=== PATIENT | female | born 1985 | race Caucasian/White ===

== ENCOUNTER 2024-06-25 03:49 | Emergency (ER) | payer OTHER, SELFPAY ==
[2024-06-25] VITALS (8 sets, daily range): BP systolic 149–152; BP diastolic 90–100; PULSE 95–118; RESP 16–18; TEMP 37.1–37.9; O2SAT 98–100; BMI 24.2
--- NOTE | ~2024-06-25 | CT_ITS ---
EXAMINATION: CT SOFT TISSUE NECK WITH CONTRAST CLINICAL INFORMATION: Left CLOTH WEIGHER suspicion. Cannot swallow. COMPARISON: None available. TECHNIQUE: Following the intravenous administration of 60 mL of Omnipaque 350 intravenous contrast, helical imaging was performed in the axial plane with generation of coronal and sagittal reformatted images. This CT examination was performed using dose optimization techniques as appropriate, variously including the following: *Automated exposure control *Adjustment of mA and/or kV according to patient size (this includes techniques or standardized protocols for targeted exams where dose is matched to indication/reason for exam; i.e. extremities or head) *Use of iterative reconstruction technique DLP: 528 mGy centimeter. FINDINGS: There is an irregularly-shaped, 35 x 32 x 50 mm low density centered in the left palatine tonsil resulting in mass effect and volume loss of the upper airways in the oropharynx and slightly nasopharynx. There is edema pattern and fluid into the left piriform sinus vallecula, and retropharynx up to C7 level. Sign Language Instructor spaces, parapharyngeal spaces and carotid spaces demonstrated no masses or fluid collections. Salivary glands are normal. Thyroid gland demonstrates normal enhancement pattern without dominant nodules. The vessels are patent. Lymphadenopathy, left greater than the right involving the submandibular and suprahyoid carotid compartments. The osseous structures are intact. Marginal osteophyte formation C5-C6. Tympanic cavities and mastoid cells are aerated. Polypoid mucosal thickening, maxillary sinuses. CT/CT soft tissue neck w IV con IMPRESSION: Phlegmon versus abscess center left palatine tonsil resulting in upper airway obstruction with edema pattern/fluid extending into the supraglottic and left retropharynx up to C7 level. Lymphadenopathy, likely reactive. Electronically signed by: Nhan Greenfield MD 06/25/2024 09:57 AM EDT
[2024-06-25 04:10] LABS: Basophils Percent Auto 0.1 % (0-2); Eosinophils Absolute Auto 0.1 X10*3/uL (0.0-0.4); Eosinophils Percent Auto 0.5 % (0-4); Hematocrit 36.2 % (37.0-47.0); Hemoglobin 12.5 g/dl (12.0-16.0); Imm Gran Abs Auto 0.04 X10*3/uL (0.00-0.03); Imm Gran Pct Auto 0.3 % (0.0-0.4); Lymphocytes Absolute Auto 1.2 X10*3/uL (1.2-4.9); Lymphocytes Percent Auto 8.9 % (20-40); MANUAL DIFF FLAG NO; Mean Corpuscular HGB Conc 34.5 g/dl (31.0-35.0); Mean Corpuscular Volume 86.8 fL (80.0-98.0); Mean Platelet Volume 8.5 fL (9.4-12.3); Monocytes Absolute Auto 1.2 X10*3/uL (0.1-1.2); Monocytes Percent Auto 8.9 % (2-11); Neutrophils Absolute Auto 10.9 x10*3/uL (2.0-8.3); Neutrophils Percent Auto 81.3 % (45-73); Platelet Count 369 X10*3/uL (160-400); Red Blood Count 4.17 X10*6/uL (4.20-5.50); Red Cell Distribution Width 13.2 % (11.0-16.0); White Blood Count 13.4 X10*3/uL (4.8-10.8)
[2024-06-25 04:16] LABS: IDNOW Serial# 58CA691E; Strep A Nucleic Acid Negative (Negative)
[2024-06-25] MEDS: Ibuprofen 800 MG TABLET PO (04:31)
--- NOTE | 2024-06-25 04:32 | PC.NURSE ---
pt medicated with po motrin for 100.2 temp pt states took tylenol at home @ 2300 prior to arrival
[2024-06-25 04:36] LABS: Alanine Aminotransferase 23 U/L (0-31); Albumin Level 4.2 g/dL (3.5-5.0); Alkaline Phosphatase 61 U/L (39-117); Anion Gap 15 (12-20); Aspartate Amino Transferase 26 U/L (5-31); Bilirubin Total 0.6 mg/dL (0.0-1.0); Blood Urea Nitrogen 4 mg/dL (9-16); Calcium 9.3 mg/dL (8.4-10.2); Carbon Dioxide 22 mmol/L (22-29); Chloride 107 mmol/L (96-108); Creatinine Clr Calc Pharmacy 98.9; Estimated Glomerular Filt Rate > 60; Glucose Random 122 mg/dL (60-115); Potassium 3.5 mmol/L (3.3-5.1); Sodium 140 mmol/L (135-145); Total Protein 7.5 g/dL (6.5-8.0)
--- NOTE | 2024-06-25 07:12 | PC.NURSE ---
pt has large peritonsilar swelling left side. is touching uvula. voice is muffled. handling secretions. no exudate.
[2024-06-25] MEDS: Acetaminophen 325 MG TABLET 650 MG PO (07:58)
--- NOTE | 2024-06-25 08:03 | ED.GENADULT ---
HPI - General Adult General Chief complaint: Upper Respiratory Symptoms Stated complaint: strep throat Time Seen by Provider: 06/25/24 08:01 Source: patient and family (patient's ) Mode of arrival: ambulatory Limitations: no limitations History of Present Illness ED Provider: Yuni Peña PA-C HPI narrative: 39 year old female presenting to the ED c/o worsening strep throat/difficulty swallowing. Patient reports she went to the [facility] yesterday 06/24/24 with sore throat, was diagnosed with strep throat and prescribed penicillin. Reports she took the antibiotics as prescribed, however, now she is having difficulty swallowing to liquids/solids, increased pain/mucus production, FB sensation in throat, and face/L ear pressure. Additionally reports fevers. Denies vision changes, hearing loss, throat closure, difficulty breathing, SOB, CP, N/V, new rashes/wounds, recent dental procedures. Onset (ago): day(s) Location: mouth (throat) Pain Consistency: constant Relieving factors: none Exacerbating factors: eating Associated symptoms: fever/chills Treatments prior to arrival: NSAID and other (Penicillin as prescribed) Related Data Allergies Allergy/AdvReac Type Severity Reaction Status Date / Time tioconazole Allergy Itching Verified 06/25/24 03:56 [From Monistat 1 (tioconazole)] Review of Systems Constitutional: Constitutional: Reports no additional constitutional complaints, Reports chills and Reports fever(s) Eyes: Eyes: Reports no additional eye complaints, Denies blurry vision, Denies change in vision, Denies diplopia, Denies eye discharge, Denies loss of vision and Denies eye pain ENT: Denies dizziness, Reports facial pain, Denies hearing loss, Denies mouth lesions, Reports nasal congestion, Reports sore throat and Reports throat swelling Comments: Foreign body sensation in throat Cardiovascular: Cardiovascular: Reports no additional cardiovascular complaints, Denies chest pain, Denies lightheadedness, Denies Loss of Consciousness and Denies dyspnea Respiratory: Respiratory: Reports no additional respiratory complaints and Denies dyspnea Gastrointestinal: Gastrointestinal: Reports no additional gastrointestinal complaints, Denies abdominal pain and Denies change in bowel habits Genitourinary: Genitourinary: Denies hematuria, Denies urinary frequency, Denies dysuria, Denies urinary incontinence, Denies urinary hesitancy and Denies urinary urgency Musculoskeletal: Musculoskeletal: Reports no additional musculoskeletal complaints, Denies numbness and Denies tingling Neurologic: Denies dizziness, Denies loss of vision, Denies numbness and Denies tingling Psychiatric: Psychiatric: Reports no additional psychiatric complaints Endocrine: Endocrine: Reports no additional endocrine complaints Hematologic/Lymphatic: Hematologic/Lymphatic: Reports no additional hematologic/lymphatic complaints Allergic/Immunologic: Allergic/Immunologic: Reports no additional allergic/immunologic complaints and Reports throat swelling PMFSH Past Medical History Attestation statement: The following information was validated with the patient. Source: old records reviewed and nursing notes reviewed Social History Social History Smoked in Last 30 Days: No Use of substances other than those prescribed or required for medical reasons: No Advance Directives: No Advance Directives Information Provided: Yes Do you have a plan to hurt others: No Plan Patient : No Physical Exam ED Vital Signs: Vital Signs - 24 hr 06/25/24 03:53 06/25/24 06:35 06/25/24 09:16 Temperature 100.2 F 98.8 F 99.0 F Pulse Rate 118 H 95 108 H Respiratory Rate 18 18 16 Blood Pressure 152/97 H 149/99 H 151/92 H Pulse Oximetry 100 100 Oxygen Delivery Method Room Air Room Air 06/25/24 09:19 06/25/24 10:13 06/25/24 10:40 Temperature 99.0 F 99.9 F Pulse Rate 108 H 105 H Respiratory Rate 16 18 Blood Pressure 151/92 H 150/100 H Pulse Oximetry 99 98 100 Oxygen Delivery Method Room Air Room Air Room Air BMI result Body Mass Index 24.2 Const General: cooperative, no acute distress, alert and awake Nutritional Appearance: well nourished Orientation/consciousness: patient oriented x3 Limitations: no limitations [facility] Head: Yes normal to inspection and Yes atraumatic Ears: hearing grossly normal bilaterally and external ears normal General nose exam: Normal external nose present, no nasal discharge noted and no epistaxis Face and sinus: Yes normal facial exam, No abrasion and No laceration Mouth: Normal oral and palatal mucosa present, no drooling and no muffled voice Throat: Yes uvula laterally displaced (to the right secondary to left tonsillar swelling) Eyes General: appearance normal, both eyes and all related structures Periorbital: periorbital findings normal Eyelids: Yes eyelids normal Conjunctivae: conjunctivae normal Pupils: Equal, round and reactive pupils present EOM: EOMs intact bilaterally Neck Neck: Yes normal visual inspection, Yes full ROM and Yes no lymphadenopathy Chest Chest palpation & inspection: normal inspection of the chest Resp Effort & Inspection: normal respiratory effort and able to speak in complete sentences GI Inspection: Yes normal to inspection Neuro General: patient oriented x3, moves all extremities and CN's II-XI intact bilaterally Cranial nerves: Yes Equal, round and reactive pupils present Cognition (Neuro): normal cognition Extrem General: Yes normal to inspection, Yes full ROM and Yes capillary refill normal Psych Appearance: grossly normal Mental Status: mental status grossly normal Affect: normal affect Attitude: cooperative Thought process: Normal thought process present Thought content: Normal thought content present Insight: Good insight present (Psych) Medications Administered Discontinued Medications Generic Name Dose Route Start Last Admin Trade Name Freq PRN Reason Stop Dose Admin Acetaminophen 650 mg 06/25/24 07:52 06/25/24 07:58 Acetaminophen 325 Mg Tablet PO 06/25/24 07:53 650 mg ONCE STA Administration Piperacillin Sod/Tazobactam 50 mls @ 100 mls/hr 06/25/24 08:38 06/25/24 09:16 Sod 3.375 gm/ Sodium Chloride IV 06/25/24 09:07 100 mls/hr ONCE ONE Administration Ibuprofen 800 mg 06/25/24 04:27 06/25/24 04:31 Ibuprofen 800 Mg Tablet PO 06/25/24 04:28 800 mg ONCE ONE Administration Iohexol 100 ml 06/25/24 09:02 06/25/24 09:03 Iohexol 350 Mg/Ml 100 Ml Infus..Btl IV 06/25/24 09:03 60 ml ONCE ONE Administration Morphine Sulfate 1 mg 06/25/24 10:29 06/25/24 10:36 Morphine Sulfate 2 Mg/Ml Cartridge IVPUSH 06/25/24 10:30 1 mg ONCE ONE Administration Protocol Ondansetron HCl 4 mg 06/25/24 10:29 06/25/24 10:37 Ondansetron Hcl 4 Mg/2 Ml Vial IVPUSH 06/25/24 10:30 4 mg ONCE ONE Administration Medical Decision Making Medical Decision Making MDM Narrative: Patient is a 39 year old assigned female at with a history of strep throat diagnosed on 06/24/2024 for which she took penicillin as prescribed, presenting to the emergency department today with a sore throat, difficulty swallowing. Patient's physical exam was as noted in the physical exam portion of this note and consistent with a left EPIC DIRECTOR. Patient's blood work showed an elevated WBC count of 13.4 but otherwise unremarkable. Patient's soft tissue CT of the neck showed Phlegmon versus abscess center left palatine tonsil resulting in upper airway obstruction with edema pattern/fluid extending into the supraglottic and left retropharynx up to C7 level. I called and spoke with the [facility] ENT concrete hopper operator, Dr. Yu who recommended transfer of the patient to the [facility] ED for evaluation. I explained my physical exam findings as well as all test results to the patient and the patient's . I answered all questions asked by the patient and the patient's . Patient was given IV Zosyn. Patient and the patient's verbalized agreement and understanding with this treatment plan and transfer to [facility] ED. Differential Diagnosis Differential Diagnoses: The differential diagnosis associated with the presentation includes Left peritonsillar abscess Left retropharyngeal abscess Admission/Observation Consideration of admission/observation: Escalation of care including admission/observation considered Patient transferred to [facility] ER as noted in the MDM Rationale portion of this note. Consult Healthcare Provider Management of the patient was discussed with: Collar Cutter (spoke with [facility] ENT Dr. Yu as noted in the MDM Rationale portion of this note. ) Lab Data [facility] Lab Attestation statement: I reviewed the patient's lab results. My interpretation of these results are in the MDM Rationale portion of this note. 06/25/24 04:03 06/25/24 04:03 Labs: Lab Results 06/25/24 Range/Units 04:03 WBC 13.4 H (4.8-10.8) X10*3/uL RBC 4.17 L (4.20-5.50) X10*6/uL Hgb 12.5 (12.0-16.0) g/dl Hct 36.2 L (37.0-47.0) % MCV 86.8 (80.0-98.0) fL MCH 30.0 (27.0-33.0) pg MCHC 34.5 (31.0-35.0) g/dl RDW 13.2 (11.0-16.0) % Plt Count 369 (160-400) X10*3/uL MPV 8.5 L (9.4-12.3) fL Immature Gran % (Auto) 0.3 (0.0-0.4) % Neut % (Auto) 81.3 H (45-73) % Lymph % (Auto) 8.9 L (20-40) % Weakley % (Auto) 8.9 (2-11) % Eos % (Auto) 0.5 (0-4) % Baso % (Auto) 0.1 (0-2) % Lymph # (Auto) 1.2 (1.2-4.9) X10*3/uL Weak[place] # (Auto) 1.2 (0.1-1.2) X10*3/uL Eos # (Auto) 0.1 (0.0-0.4) X10*3/uL Baso # (Auto) 0.0 (0.0-0.2) X10*3/uL Abs Immat Gran (auto) 0.04 H (0.00-0.03) X10*3/uL Absolute Neuts (auto) 10.9 H (2.0-8.3) x10*3/uL Absolute Nucleated RBC 0.000 (0.0-0.012) X10*3/uL Nucleated RBC % (auto) 0.0 (0.0-0.2) /100WBC Sodium 140 (135-145) mmol/L Potassium 3.5 (3.3-5.1) mmol/L Chloride 107 (96-108) mmol/L Carbon Dioxide 22 (22-29) mmol/L Anion Gap 15 (12-20) BUN 4 L (9-16) mg/dL Creatinine 0.70 (0.5-1.4) mg/dL Estim Creat Clear Calc 98.9 Estimated GFR > 60 Random Glucose 122 H (60-115) mg/dL Calcium 9.3 (8.4-10.2) mg/dL Total Bilirubin 0.6 (0.0-1.0) mg/dL AST 26 (5-31) U/L ALT 23 (0-31) U/L Alkaline Phosphatase 61 (39-117) U/L Total Protein 7.5 (6.5-8.0) g/dL Albumin 4.2 (3.5-5.0) g/dL S. pyogenes GrpA ADRY Negative (Negative) Independent Interpretation I performed an independent interpretation of an: CT Scan Interpretation: My interpretation is in agreement with the radiologist's impression of this imaging study. Report Number: [id number]: Total DLP = 528.00 mGy-cm EXAMINATION: CT SOFT TISSUE NECK WITH CONTRAST CLINICAL INFORMATION: Left EPIC DIRECTOR suspicion. Cannot swallow. COMPARISON: None available. TECHNIQUE: Following the intravenous administration of 60 mL of Omnipaque 350 intravenous contrast, helical imaging was performed in the axial plane with generation of coronal and sagittal reformatted images. This CT examination was performed using dose optimization techniques as appropriate, variously including the following: *Automated exposure control *Adjustment of mA and/or kV according to patient size (this includes techniques or standardized protocols for targeted exams where dose is matched to indication/reason for exam; i.e. extremities or head) *Use of iterative reconstruction technique DLP: 528 mGy centimeter. FINDINGS: There is an irregularly-shaped, 35 x 32 x 50 mm low density centered in the left palatine tonsil resulting in mass effect and volume loss of the upper airways in the oropharynx and slightly nasopharynx. There is edema pattern and fluid into the left piriform sinus vallecula, and retropharynx up to C7 level. Nurse Charge Rn spaces, parapharyngeal spaces and carotid spaces demonstrated no masses or fluid collections. Salivary glands are normal. Thyroid gland demonstrates normal enhancement pattern without dominant nodules. The vessels are patent. Lymphadenopathy, left greater than the right involving the submandibular and suprahyoid carotid compartments. The osseous structures are intact. Marginal osteophyte formation C5-C6. Tympanic cavities and mastoid cells are aerated. Polypoid mucosal thickening, maxillary sinuses. CT/CT soft tissue neck w IV con IMPRESSION: Phlegmon versus abscess center left palatine tonsil resulting in upper airway obstruction with edema pattern/fluid extending into the supraglottic and left retropharynx up to C7 level. Lymphadenopathy, likely reactive. Electronically signed by: Nhan Greenfield MD 06/25/2024 09:57 AM EDT Dictated By: Nhan Zavala MD Signed By: Electronically signed by Nhan Bello MD 06/25/24 0957 Radiology Impression Discussion of test interpretation with radiology: I have reviewed the radiologist's reading. Independent Historian Clinical information obtained from an independent historian. History obtained from or confirmed by: Spouse (patient's provided additional history and confirmed the history provided by the patient. ) Critical Care Time Critical Care Time Critical Care Time: Yes Total Critical Care Time: 38 Attestation: I spent 38 minutes of Critical Care Time with this patient. This does not include time spent on separately reported billable procedures. Discharge Plan Discharge Clinical Impression: Abscess, peritonsillar, Abscess, retropharyngeal Patient Disposition: [facility] Transfer Details: Accepted by Dr. Yu Print Language: Maori
[2024-06-25] MEDS: iohexoL 350 MG/ML 100 ML INFUS..BTL IV (09:03)
[2024-06-25] MEDS: Piperacillin Sodium/Tazobactam 3.375 GM in 0.9 % Sodium Chloride 50 ML IV (09:16)
--- NOTE | 2024-06-25 10:10 | PC.NURSE ---
Pt is aware of plan for transfer to [facility]. is waiting to hear whom is available for transfer. Airway remains patent. Pt is calm but pain remains. Declining offers for oxycodone/morphine.
[2024-06-25] MEDS: Morphine Sulfate 2 MG/ML CARTRIDGE 1 MG IVPUSH (10:36)
[2024-06-25] MEDS: ondansetron HCL 4 MG/2 ML VIAL IVPUSH (10:37)
--- NOTE | 2024-06-25 11:28 | PC.NURSE ---
RN to RN with Pam at [facility].
== END 2024-06-25 12:08 | disposition short-term general hospital (02) ==
PROVIDERS: Emergency Provider Emergency Medicine
DX: J39.0 Retropharyngeal and parapharyngeal abscess (principal)
CPT/HCPCS: 70491; 80053; 85025; 87651; 96374; 96375; 99285; J2270; J2405; J2543; Q9967

== ENCOUNTER → 2024-06-25 08:38 | Outpatient (BNV) | payer OTHER, SELFPAY | PROVIDERS: Visit Provider Radiology Diagnostic Radiology | DX: R13.10 Dysphagia, unspecified (principal) | CPT/HCPCS: 70491 ==